=== PATIENT | female | born 1980 ===

== ENCOUNTER 2018-08-17 05:37 | Inpatient (IN) | payer BC ==
[2018-08-17] MEDS ORDERED: Dextrose 5%-Lactated Ringers 1,000 ML IV SCH (05:40)
[2018-08-17] MEDS ORDERED: Bicitra 30 ML UDCUP PO SCH (05:40)
[2018-08-17] MEDS ORDERED: Ondansetron PF 4 MG/2 ML Vial IVP PRN ×2 (05:40→09:33)
[2018-08-17] MEDS ORDERED: Promethazine HCl 25 MG/ML VIAL IM PRN ×3 (05:40→09:33)
[2018-08-17] MEDS ORDERED: CEFAZOLIN 2 GM/50 ML BAG IVPB SCH (05:40)
[2018-08-17 06:44] LABS: Hemoglobin 12.3 g/dL (12.0-16.0); Mean Corpuscular HGB CONC 31.1 g/dL (32.0-36.0); Mean Corpuscular Volume 83.4 fL (78.0-98.0); Platelet Count 168 thou/uL (130-400); RBC Distribution Width 14.8 % (11.5-14.5); Red Blood Cell (RBC) Count 4.75 mill/uL (4.20-5.40); White Blood Cell (WBC) Count 5.9 thou/uL (4.8-10.8)
[2018-08-17] MEDS: Lactated Ringer's 1,000 ML IV SCH ×2 (07:00→22:22)
[2018-08-17 07:12] LABS: HBSAg Index 0.18 S/CO (0-0.99); Hep B Surf Ag Non-Reactive S/CO (NonReactive); Syphilis Antibody Nonreactive (Nonreactive); Syphilis Antibody Index 0.03 S/CO (<1.00 Non-Reactive)
[2018-08-17] MEDS ORDERED: Morphine PF 1 MG/ML SYR ONE (07:15)
[2018-08-17] MEDS ORDERED: Bupivacaine 0.75% W/DEXTROSE 8.25% 2 ML AMP ONE (07:16)
[2018-08-17] MEDS ORDERED: Lidocaine 1% PF 5 ML VIAL ONE (07:16)
[2018-08-17] MEDS ORDERED: Oxytocin 10 UNITS/ML VIAL ONE ×2 (07:16→07:58)
[2018-08-17] MEDS ORDERED: Ondansetron PF 4 MG/2 ML Vial ONE ×2 (07:16→13:49)
[2018-08-17] MEDS ORDERED: ePHEDrine/0.9% NaCl/PF SYRINGE 50 mg/10 ml ONE ×2 (07:43→13:49)
[2018-08-17] MEDS ORDERED: HYDROcodone/Acetaminophen 5/325 mg Tablet PO PRN (08:31)
[2018-08-17] MEDS ORDERED: Adacel (T-DAP) 0.5 ML VIAL IM ONE (08:31)
[2018-08-17] MEDS ORDERED: diphenhydrAMINE 25 MG CAP PO PRN (08:31)
[2018-08-17] MEDS ORDERED: Lanolin Ointment 7 GM TUBE TOP PRN (08:31)
[2018-08-17] MEDS ORDERED: Simethicone Chewable 80 MG TAB PO PRN (08:31)
[2018-08-17] MEDS ORDERED: NS / Oxytocin 40 units/1000ml 1,000 ML IV SCH (08:45)
[2018-08-17] MEDS ORDERED: Promethazine HCl 25 MG/ML VIAL SLOW IVP PRN (09:32)
[2018-08-17] MEDS ORDERED: Ondansetron HCl/PF 4 MG/2 ML Vial IVP PRN (09:32)
[2018-08-17] MEDS ORDERED: Naloxone HCl 0.4 mg/ml Vial IV PRN (09:33)
[2018-08-17] MEDS ORDERED: Naloxone HCl 0.4 mg/ml Vial IVP PRN ×2 (09:33)
[2018-08-17] MEDS ORDERED: Eucerin (Mineral Oil/Petrolatum,White) 30 gm Jar TOP PRN (09:33)
[2018-08-17] MEDS ORDERED: Promethazine HCl 25 MG SUPP PR PRN (09:33)
[2018-08-17] MEDS ORDERED: diphenhydrAMINE 50 MG/ML VIAL IVP PRN (09:33)
[2018-08-17] MEDS ORDERED: Ketorolac Tromethamine 30 MG/ML VIAL IVP PRN (09:33)
[2018-08-17] MEDS ORDERED: Communication Order-Pharmacy FS SCH (09:45)
[2018-08-17] MEDS: Docusate Calcium (SURFAK) 240 MG CAP PO SCH ×2 (11:10→21:03)
--- NOTE | 2018-08-17 13:35 | OP ---
DATE OF PROCEDURE: 08/17/2018 PREOPERATIVE DIAGNOSES: Term gestation, previous section, uterine fibroid. POSTOPERATIVE DIAGNOSES: Term gestation, previous section, uterine fibroid. PROCEDURE: Repeat low cervical transverse section. SURGEON: Tristen Lutz MD RN TRANSFER: Silvana Amezcua DO FINDINGS: Term male infant. There were multiple uterine fibroids, the largest were intramural, right lateral and posterior measuring approximately 7 cm and 5 cm and there was an anterior uterine fibroid measuring approximately 4 cm, none at the lower transverse cervical incision. TECHNIQUE: Under spinal anesthesia, the patient was placed in supine position, prepped and draped in sterile fashion. Pfannenstiel scar was excised. The abdomen was opened in layers. The vesicouterine fold of the peritoneum was incised to create a bladder flap. The lower uterine segment was high transversely. The vertex of the infant was delivered with the aid of fundal pressure. The placenta was manually removed. The uterine incision was closed with continuous locking suture of 0 Vicryl. Hemostasis obtained with interrupted [id number] suture of 0 Vicryl. The fascia and subcuticular layers were closed with continuous suture 0 Vicryl in continuous subcuticular stitch of 3-0 Monocryl, respectively. Good hemostasis was noted through each layer of closure. Sponge and needle counts were correct. Estimated blood loss was 800 mL. She tolerated the procedure well and was sent to recovery room in stable condition. ALEJANDRO
[2018-08-17] MEDS: Ibuprofen 800 MG TAB PO SCH ×2 (16:33→21:03)
[2018-08-18] MEDS: Ibuprofen 800 MG TAB PO SCH ×3 (06:09→21:28)
--- NOTE | 2018-08-18 06:17 | PDOC.PP ---
Post Progress Note PO intake tolerated: yes Ambulation: yes Vital Signs (12 hours) Temp Pulse Resp BP Pulse Ox 08/18/18 00:25 98.3 F 93 18 95/54 L 97 08/17/18 20:00 98.0 F 119 H 20 121/64 97 Weight Weight 84.1 kg - Physical Examination Abdominal: no distention Skin: CS incision dry & intact Result Diagrams: 08/17/18 06:24 Additional Labs: Post Labs Blood Type A POSITIVE 08/17/18 06:24 Hep Bs Antigen Non-Reactive S/CO (NonReactive) 08/17/18 06:24 - Assessment/Plan Doing well.
[2018-08-18 07:09] LABS: Hemoglobin 10.9 g/dL (12.0-16.0); Mean Corpuscular HGB CONC 32.3 g/dL (32.0-36.0); Mean Corpuscular Hemoglobin 27.6 pg (27.0-31.0); Mean Corpuscular Volume 85.4 fL (78.0-98.0); Mean Platelet Volume 10.9 fL (7.4-10.4); Platelet Count 140 thou/uL (130-400); RBC Distribution Width 14.9 % (11.5-14.5); Red Blood Cell (RBC) Count 3.96 mill/uL (4.20-5.40); White Blood Cell (WBC) Count 8.6 thou/uL (4.8-10.8)
[2018-08-18] MEDS: Docusate Calcium (SURFAK) 240 MG CAP PO SCH ×2 (09:10→20:45)
[2018-08-18] MEDS: HYDROcodone/Acetaminophen 5/325 mg Tablet PO PRN ×2 (12:52→20:45)
[2018-08-19] MEDS: Ibuprofen 800 MG TAB PO SCH (06:14)
[2018-08-19 08:10] VITALS: BP 115/70; TEMP 98
[2018-08-19] MEDS ORDERED: Prenatal Vitamin 1 TAB PO SCH (09:00)
[2018-08-19] MEDS: Docusate Calcium (SURFAK) 240 MG CAP PO SCH (09:48)
[2018-08-19] MEDS: HYDROcodone/Acetaminophen 5/325 mg Tablet PO PRN (13:02)
== END 2018-08-19 13:05 | disposition home or self-care (01) | DRG 788 ==
LOC: L&D 05:37 → 3SW 10:46
PROVIDERS: ADMIT Obstetrics & Gynecology; ATTEND Obstetrics & Gynecology
PROC: 10D00Z1 Extraction of Products of Conception, Low, Open Approach (ICD-10-PCS; principal; 2018-08-17)
DX: O34.211 Maternal care for low transverse scar from previous cesarean delivery (principal); Z3A.40 40 weeks gestation of pregnancy; Z37.0 Single live birth; O48.0 Post-term pregnancy
CPT/HCPCS: 36415; 51702; 85027; 86780; 86850; 86900; 86901; 87340; J1885; J2001; J2274; J2405; J2590; J3490